=== PATIENT | female | born 1945 | race Caucasian/White ===

== ENCOUNTER 2024-02-10 14:56 | Outpatient (CLI) | payer OTHER | END 2024-02-10 14:57 | disposition home or self-care (01) | LOC: CSHULT 14:56 | DX: I48.11 Longstanding persistent atrial fibrillation (principal); I70.0 Atherosclerosis of aorta; I34.0 Nonrheumatic mitral (valve) insufficiency; I51.9 Heart disease, unspecified | CPT/HCPCS: 93306 ==